=== PATIENT | female | born 1955 | race Caucasian/White ===

== ENCOUNTER → 2016-08-11 | Outpatient (CLI) | payer MEDICARE, OTHER ==
[2016-08-11 09:14] LABS: MEAN CORPUSCULAR HGB CONC 34.3 g/dL (31.0-37.0); MEAN CORPUSCULAR VOLUME 93 FL (80-100); MEAN PLATELET VOLUME 9.9 FL (6.0-9.5); PLATELET COUNT 234 10^3uL (150-450); WHITE BLOOD COUNT 6.53 10^3uL (4.0-11.0)
[2016-08-11 09:18] LABS: MEAN CORPUSCULAR HEMOGLOBIN 32.1 PG (26.0-34.0)
[2016-08-11 09:40] LABS: ALBUMIN 4.2 g/dL (3.4-5.0); ANION GAP 13.7 MEQ/L (3-15); TOTAL PROTEIN 7.5 g/dL (6.4-8.5)
[2016-08-11 10:21] LABS: BAND NEUTROPHILS % 0 % (0-6); LYMPHOCYTES # 1.4 #; SEGMENTED NEUTROPHILS % 66 % (51-67)
[2016-08-11 10:22] LABS: EOSINOPHILS % 3 % (0-4); MONOCYTES # 0.5 #; MONOCYTES % 9 % (3-11); RBC MORPH NORMAL (NORMAL); TOTAL CELLS COUNTED 100
== END ==
LOC: LAB 08:32
PROVIDERS: ATTEND Internal Medicine Hematology & Oncology
DX: C34.11 Malignant neoplasm of upper lobe, right bronchus or lung (principal)
CPT/HCPCS: 36415; 80053; 85007; 85027

== ENCOUNTER → 2016-08-15 | Outpatient (CLI) | payer MEDICARE, OTHER ==
--- NOTE | 2016-08-15 09:08 | Diagnostic Imaging Report ---
PROCEDURE: CT chest with contrast only. TECHNIQUE: Multiple contiguous axial images were obtained through the chest after administration of intravenous contrast. INDICATION: Lung cancer. Compared 01/19/2016. Paramediastinal fibrotic changes in the medial right lung are redemonstrated. The area of maximal thickness is 2.6 cm, unchanged from prior; however, at the level of maximal thickness, gas-like cavitation centrally has now become fluid or soft tissue in its density. No other change aside from further partial healing of right posterolateral and costovertebral junction rib fracture deformities. No new chest wall pathology. Trace pericardial fluid anteriorly stable. No pleural effusion. No pneumothorax. There is COPD with air trapping and cyst formation greatest in the apices, unchanged. No hilar or mediastinal lymphadenopathy. The visualized upper abdomen reveals intact adrenal glands. The incompletely visualized liver unremarkable where seen. 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 Bullous emphysema superimposed, chronic. Healing of rib fractures. No adverse development. Dictated by: Dictated on workstation # [id number]
== END ==
LOC: RAD 08:01
PROVIDERS: ATTEND Internal Medicine Hematology & Oncology
DX: C34.11 Malignant neoplasm of upper lobe, right bronchus or lung (principal)
CPT/HCPCS: 71260; Q9967

== ENCOUNTER → 2016-12-06 | Outpatient (CLI) | payer MEDICARE, OTHER | LOC: LAB 09:42 | PROVIDERS: ATTEND Family Medicine | DX: E03.8 Other specified hypothyroidism (principal) | CPT/HCPCS: 36415; 84439; 84443 ==